=== PATIENT | female | born 1950 | race Caucasian/White ===

== ENCOUNTER → 2019-04-19 12:20 | Outpatient (CLI) | payer MEDICARE ==
[2019-04-19 13:09] LABS: APTT 36.3 SECONDS (22.8-39.4); INR 1.72 (0.85-1.17); PROTIME 19.6 SECONDS (11.6-15.0)
[2019-04-19 13:12] LABS: BASOPHILS 0.2 % (0-2); EOSINOPHILS 1.3 % (0-7); HEMATOCRIT 41.5 % (36.0-48.0); HEMOGLOBIN 14.1 g/dL (12-16); MCH 31.8 pg (26.0-34.0); MCV 93.7 fL (80.0-100.0); MEAN PLATELET VOLUME 9.8 fL (7.4-10.4); MONOCYTES 4.7 % (2-11); NEUTROPHILS 74.8 % (40-80); PLATELET COUNT 181 10x3/uL (130-400); RBC 4.43 10x6/uL (4.00-5.40); RDW 14.4 % (11.5-14.5)
[2019-04-19 13:45] LABS: ALBUMIN 3.4 g/dL (3.4-5.0); BILIRUBIN - DIRECT 0.12 mg/dL (0.00-0.30); BILIRUBIN - INDIRECT 0.42 mg/dL (0.00-1.00); BILIRUBIN - TOTAL 0.54 mg/dL (0.2-1.3); PROTEIN - SERUM 6.6 g/dL (6.4-8.2)
[2019-04-19 14:13] LABS: % SATURATION 18 % (15-55); IRON 50 ug/dl (35-150); TOTAL IRON BIND CAPACITY 274 ug/dl (260-445); UNSAT IRON BIND CAPACITY 224 ug/dl (150-375)
[2019-04-20 08:11] LABS: HAPTOGLOBIN 135 mg/dL (34-200)
[2019-04-20 10:10] LABS: ANA REFLEX - DIRECT Negative (Negative)
[2019-04-20 14:09] LABS: ALPHA FETOPROTEIN -(TUMOR MRK) 2.6 ng/mL (0.0-8.3)
[2019-04-22 11:10] LABS: SMOOTH MUSCLE ABS (ACTIN) 8 Units (0-19)
[2019-04-22 12:10] LABS: MITOCHONDRIAL ANTIBODY <20.0 Units (0.0-20.0)
== END | disposition home or self-care (01) ==
LOC: D.LAB 12:20 → D.CT 13:00
PROVIDERS: ATTEND Internal Medicine Gastroenterology
DX: D18.09 Hemangioma of other sites (principal)

== ENCOUNTER → 2019-04-22 10:33 | Outpatient (CLI) | payer OTHER ==
[2019-04-22 11:35] LABS: ANION GAP 8.9 mmol/L (8-16); CARBON DIOXIDE 32.3 mmol/L (21.0-32.0); POTASSIUM - SERUM 4.2 mmol/L (3.5-5.1)
[2019-04-23 08:10] LABS: CEA 1.4 ng/mL (0.0-4.7)
== END | disposition home or self-care (01) ==
LOC: D.LAB 10:33
PROVIDERS: ATTEND Internal Medicine Gastroenterology
DX: R93.5 Abnormal findings on diagnostic imaging of other abdominal regions, including retroperitoneum (principal); E11.9 Type 2 diabetes mellitus without complications; D18.09 Hemangioma of other sites

== ENCOUNTER → 2019-05-03 16:01 | Outpatient (CLI) | payer OTHER | END | disposition home or self-care (01) | LOC: D.LAB 16:01 | PROVIDERS: ATTEND Internal Medicine Gastroenterology | DX: D18.09 Hemangioma of other sites (principal); R93.2 Abnormal findings on diagnostic imaging of liver and biliary tract ==